=== PATIENT | female | born 1950 | race Caucasian/White ===

== ENCOUNTER 2018-07-14 09:15 | Inpatient (IN) ==
--- NOTE | 2018-07-14 10:25 | Emergency Department Note ---
Disposition Clinical Impression: ARF (acute renal failure) Qualifiers: Acute renal failure type: unspecified Qualified Code(s): N17.9 - Acute kidney failure, unspecified Disposition: Admitted As Inpatient Condition: Fair General Adult HPI - General Chief complaint: ED Recheck/Abnormal Lab/Rx Stated complaint: positive blood cx-called was here yesterday Time Seen by Provider: 07/14/18 10:01 Source: patient, family Limitations: no limitations - History of Present Illness HPI Narrative: Mrs. Hensley is a 67-year-old female past medical history of CKD stage III, hypertension, and NSAID use, borderline diabetes and who presents to the ER request of spring former Dr. Andrade because of flow sudden decline in her GFR from 38 to15, and elevation in creatinine from 1.37-3.11 in a span of 8 days. Patient recently underwent total knee replacement on July 05 and was requested from Ortho to be referred to nephrology because a GFR was noted to be declining while during the hospital stay. Patient denies any recent IV contrast and an C or recent admission are CHF events in the preceding few weeks." She was recently started on spironolactone by her PCP late June but patient's said she stopped taking the spironolactone a day before the surgery because it was making her dizzy. Patient endorses that she stays hydrated denies any dysuria, hematuria, bilateral flank pain, no Hx of congestive heart failure or any liver dysfunction. Of note patient takes 100 mg losartan daily for hypertension. She denies any systemic signs like fever, shortness of breath, chest pain, diarrhea vomiting nausea numbness or tingling in extremities. Pain Scale: 4 - Related Data Home Medications Medication Instructions Recorded Confirmed Amlodipine Besylate 5 mg PO DAILY 07/05/18 07/14/18 Calcium Carbonate/Vitamin D3 1 tab PO DAILY 07/05/18 07/14/18 [Calcium 500 + Vit D Caplet] Carvedilol 12.5 mg PO BID 07/05/18 07/14/18 DiphenhydraMINE [Benadryl] 12.5 mg PO BID PRN 07/05/18 07/14/18 Losartan Potassium 100 mg PO DAILY 07/05/18 07/14/18 Multivitamin [One Daily Essential] 1 tab PO DAILY 07/05/18 07/14/18 hydroCHLOROthiazide 25 mg PO DAILY 07/05/18 07/14/18 [Hydrochlorothiazide] Albuterol Sulfate [Albuterol 2 puff IN DAILY PRN 07/14/18 07/14/18 Inhaler] Aspirin [Adult Aspirin Regimen] 81 mg PO DAILY 07/14/18 07/14/18 Atorvastatin [Lipitor] 40 mg PO DAILY 07/14/18 07/14/18 Docusate [Colace] 100 mg PO DAILY 07/14/18 07/14/18 Oxycodone HCl 5 mg PO Q6-8H PRN 07/14/18 07/14/18 Allergies Allergy/AdvReac Type Severity Reaction Status Date / Time No Known Allergies Allergy Verified 07/14/18 13:55 Constitutional: Denies: fever, chills ENT ED: Denies: ear pain Cardiovascular: Denies: chest pain Respiratory: Denies: cough Gastrointestinal: Denies: abdominal pain Genitourinary: Denies: urgency, dysuria Integumentary: Denies: rash, abrasion Neurological: Denies: headache, weakness Psychiatric: Denies: anxiety Endocrine: Denies: fatigue Hematological/Lymphatic: Denies: easy bruising Past Medical History - Past Medical History Medical history: Reports: asthma, diabetes, hyperlipidemia, hypertension, osteoporosis, renal disease Surgical history: Reports: other Psychiatric history: Reports: no psych history - Social History Smoking Status: Never smoker Smokeless Tobacco Status: No Alcohol use: Reports: none Drug use: Reports: none Physical Exam Gen.: Vitals noted. No acute distress. Alert, awake and oriented * [address], [address], and time, well developed, well-nourished resting comfortably in bed. Pleasant. HEENT: oropharynx clear, Normocephalic, atraumatic, MMM Neck: supple, no JVD, no lymphadenopathy, no carotid bruit. Cardiac: RRR, murmur, +S1/S2, No BLE edema, PMI non-displaced Pulmonary: CTA bilaterally, no wheezes, rales or rhonchi, equal chest expansion, unlabored breathing Abdomen: soft, nontender, BS noted, no guarding, mildly distended. No organomegaly, no pulsatile masses, Back: No Bilateral flank tenderness, no suprapubic pain Skin: warm and dry, no visible lesions. Feels warm, clammy, no rashes, no lesions, no erythema MSK: ROM not assessed. no joint swelling noted, gait not assessed while in bed. Non tender calf or clubbing, no cyanosis/clubbing/ or edema Neuro: A&O, moves all extremities, no focal deficits, sensation intact Psych: Appropriate mood and behavior, normal speech. . Course Vital Signs Temperature 98.3 F 07/14/18 09:23 Pulse Rate 77 07/14/18 09:23 Respiratory Rate 18 07/14/18 09:23 Blood Pressure 163/77 07/14/18 09:23 O2 Sat by Pulse Oximetry 98 07/14/18 09:23 Temperature 97.2 F L 07/14/18 20:58 Pulse Rate 81 07/14/18 20:58 Respiratory Rate 16 07/14/18 20:58 Blood Pressure 129/78 07/14/18 20:58 O2 Sat by Pulse Oximetry 96 07/14/18 20:58 Oxygen Delivery Oxygen Delivery Room Air Medical Decision Making - MDM Narrative Medical decision making narrative: 1156: Patient's BMP this morning showed a creatinine of 2.93 and GFR of 19. 1200: Spoke to the Greenhouse Assistant telephone sterilizer (Dr. Estevez) and I ordered UA, Urine Na, Urine Cr along and CPK 1210: Spoke to the admitting hospitalist Dr. Pastor and patient will be admitted for further evaluation Patient presents to the ED after her visit to [facility] because from SKIP on CKD stage III. She had a decline in her GFR from 30 and 15 a span of 7 days along with progressively increasing creatinine from a 1.37-3.11 suggesting significant SKIP. Patient denies any symptoms of dusurea , hematurea or suprapubic pain , her UA was negative for UTi. Patient does have risk factors that can predisposing her to worsening SKIP like of long-term NSAID use and currently using on losartan 100 mg for hypertension. Patient will be admitted to the hospital for further evaluation of her SKIP on CKD. - Lab Data Result diagrams: 07/14/18 11:57 Lab Results 07/14/18 07/14/18 Range/Units 11:57 11:57 Sodium 136 (136-145) mEq/L Potassium 4.7 (3.5-5.1) mEq/L Chloride 98 (98-107) mEq/L Carbon Dioxide 27 (23-29) mEq/L BUN 36 H (8-23) mg/dL Creatinine 2.87 H (0.60-1.20) mg/dL Est GFR ( Amer) 20 L (> 60) Est GFR (Non-Af Amer) 16 L (> 60) BUN/Creatinine Ratio 13 (6-26) Glucose 139 H (70-105) mg/dL Est Mean Plasma Glucose 123 mg/dl Hemoglobin A1c 5.9 H ( - 5.6) % Calculated Osmolality 293 (280-300) Calcium 9.8 (8.6-10.3) mg/dL Creatine Kinase 112 (30-223) Units/L
--- NOTE | 2018-07-14 11:25 | Emergency Department Note ---
Disposition Clinical Impression: ARF (acute renal failure) Qualifiers: Acute renal failure type: unspecified Qualified Code(s): N17.9 - Acute kidney failure, unspecified Disposition: Admitted As Inpatient Condition: Fair Referrals: Caitlin Marie CNP [Primary Care Provider] - Forms: ED Satisfaction Letter Time of Disposition: 12:50 General Adult HPI - General Chief complaint: ED Recheck/Abnormal Lab/Rx Stated complaint: positive blood cx-called was here yesterday Time Seen by Provider: 07/14/18 10:01 Source: patient, family Limitations: no limitations - History of Present Illness Pain Scale: 4 - Related Data Home Medications Medication Instructions Recorded Confirmed Albuterol Sulfate [Albuterol 2 puff IH Q12H PRN 07/05/18 07/05/18 Inhaler] Alendronate Sodium [Fosamax] 70 mg PO QWEEK 07/05/18 07/05/18 Amlodipine Besylate 5 mg PO DAILY 07/05/18 07/05/18 Atorvastatin [Lipitor] 40 mg PO HS 07/05/18 07/05/18 Calcium Carbonate/Vitamin D3 1 tab PO DAILY 07/05/18 07/05/18 [Calcium 500 + Vit D Caplet] Carvedilol 12.5 mg PO BID 07/05/18 07/05/18 DiphenhydraMINE [Benadryl] 12.5 mg PO BID 07/05/18 07/05/18 Losartan Potassium 100 mg PO DAILY 07/05/18 07/05/18 Multivitamin [One Daily Essential] 1 tab PO DAILY 07/05/18 07/05/18 Spironolactone 25 mg PO DAILY 07/05/18 07/05/18 Von's Wort 150 mg PO DAILY 07/05/18 07/05/18 hydroCHLOROthiazide 25 mg PO DAILY 07/05/18 07/05/18 [Hydrochlorothiazide] Previous Rx's Medication Instructions Recorded Aspirin Enteric Coated [Aspirin EC] 325 mg PO BID #20 tablet. 07/04/18 Docusate [Colace] 100 mg PO BID 10 Days #20 capsule 07/04/18 Allergies Allergy/AdvReac Type Severity Reaction Status Date / Time No Known Allergies Allergy Verified 07/05/18 08:50 Constitutional: Denies: fever, chills ENT ED: Denies: ear pain Cardiovascular: Denies: chest pain Respiratory: Denies: cough Gastrointestinal: Denies: abdominal pain Genitourinary: Denies: urgency, dysuria Integumentary: Denies: rash, abrasion Neurological: Denies: headache, weakness Psychiatric: Denies: anxiety Endocrine: Denies: fatigue Hematological/Lymphatic: Denies: easy bruising Past Medical History - Past Medical History Medical history: Reports: asthma, diabetes, hyperlipidemia, hypertension, osteoporosis, renal disease Surgical history: Reports: other Psychiatric history: Reports: no psych history - Social History Smoking Status: Never smoker Smokeless Tobacco Status: No Alcohol use: Reports: none Drug use: Reports: none Physical Exam - General Limitations: no limitations General appearance: alert, in no apparent distress Course Vital Signs Temperature 98.3 F 07/14/18 09:23 Pulse Rate 77 07/14/18 09:23 Respiratory Rate 18 07/14/18 09:23 Blood Pressure 163/77 07/14/18 09:23 O2 Sat by Pulse Oximetry 98 07/14/18 09:23 Temperature 98.3 F 07/14/18 09:42 Pulse Rate 77 07/14/18 09:42 Respiratory Rate 18 07/14/18 09:42 Blood Pressure 163/77 07/14/18 09:42 O2 Sat by Pulse Oximetry 98 07/14/18 09:42 Oxygen Delivery Oxygen Delivery Room Air Medical Decision Making - Lab Data Result diagrams: 07/14/18 11:57 Lab Results 07/14/18 Range/Units 11:57 Sodium 136 (136-145) mEq/L Potassium 4.7 (3.5-5.1) mEq/L Chloride 98 (98-107) mEq/L Carbon Dioxide 27 (23-29) mEq/L BUN 36 H (8-23) mg/dL Creatinine 2.87 H (0.60-1.20) mg/dL Est GFR ( Amer) 20 L (> 60) Est GFR (Non-Af Amer) 16 L (> 60) BUN/Creatinine Ratio 13 (6-26) Glucose 139 H (70-105) mg/dL Calculated Osmolality 293 (280-300) Calcium 9.8 (8.6-10.3) mg/dL Attestation Statement - Attestation Attestation: I examined this patient and my medical decision-making was reviewed with the CRN A/PA/Advanced Practice Nurse/Resident Physician. I agree with the documented findings, disposition and treatment plan as described except to the extent set forth below. 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 She denies any pain in the head, neck, chest, abdomen or back. No fevers or vomiting. No blood in the urine or stool. Does take medications for blood pressure. Patient will be admitted for further evaluation and management of elevated blood pressure and we do have nephrology and the hospitalist paged [phone]
[2018-07-14] MEDS ORDERED: 0.9 % Sodium Chloride 500 ML IVC ONE (11:57)
--- NOTE | 2018-07-14 12:23 | Internal Med History&Physical ---
Date of Encounter: 07/14/18 Time of Encounter: 12:22 Internal Medicine - H&P: HPI Chief complaint: Abnormal labs Admitted From: Emergency Dept Plans for Post Hospital Care: Home History of present illness: Ms. Hensley is a 67 year old female with past medical history of hypertension, HLD, and who presented to the ER from 's office due to worsening kidney function. The patient recently had a right total knee arthroplasty done on 07/05/2018 here. During that visit she had issues with abnormal kidney funct ion which seemed to have resolved at discharge. She was recommended a follow up with Dr. Andrade. Creatinine on 07/07 was .94. Yesterday she had a follow up at the orthopedic's office and had labs done and creatinine was 3.11. She saw Dr. Andrade today and repeated creatinine was 2.93. BUN 36. She thinks her urinary frequency had decreased. Says she has not been eating as much due to the pain and decreased appetite. She had a normal kidney ultrasound last month. She take HCTZ and losartan. She was put recently on aldactone too but has not taken it since before the knee replacement as it was causing her dizziness. She denies contrast exposure. Not on NSAIDs. Takes tylenol for pain. No hematuria. Denies fever,chills, nausea, vomiting, headache, blurry vision, chest pain, shortness of breath, abdominal pain, constipation, diarrhea, lower extremity edema, rashes, or neurological symptoms. Past Med Surg Social Fam HX - Past Medical History Medical history: asthma, diabetes, hyperlipidemia, hypertension, osteoporosis, renal disease Additional medical history: Heart Murmur. Nonrheumatic Aortic Valve Stenosis Psychiatric history: no psych history - Past Surgical History Surgical History: other Additional surgical history: Right Knee Replacement. TLC-After Childbirth - Social History Smoking Status: Never smoker Smokeless Tobacco Status: No Alcohol use: none Drug use: none Internal Medicine - H&P: Meds Aspirin Enteric Coated [Aspirin EC] 325 mg PO BID #20 tablet. 07/04/18 [Rx] Docusate [Colace] 100 mg PO BID 10 Days #20 capsule 07/04/18 [Rx] Albuterol Sulfate [Albuterol Inhaler] 2 puff IH Q12H PRN 07/05/18 [History] Alendronate Sodium [Fosamax] 70 mg PO QWEEK 07/05/18 [History] Amlodipine Besylate 5 mg PO DAILY 07/05/18 [History] Atorvastatin [Lipitor] 40 mg PO HS 07/05/18 [History] Calcium Carbonate/Vitamin D3 [Calcium 500 + Vit D Caplet] 1 tab PO DAILY 07/05/18 [History] Carvedilol 12.5 mg PO BID 07/05/18 [History] DiphenhydraMINE [Benadryl] 12.5 mg PO BID 07/05/18 [History] Losartan Potassium 100 mg PO DAILY 07/05/18 [History] Multivitamin [One Daily Essential] 1 tab PO DAILY 07/05/18 [History] Spironolactone 25 mg PO DAILY 07/05/18 [History] Von's Wort 150 mg PO DAILY 07/05/18 [History] hydroCHLOROthiazide [Hydrochlorothiazide] 25 mg PO DAILY 07/05/18 [History] Allergy/AdvReac Type Severity Reaction Status Date / Time No Known Allergies Allergy Verified 07/05/18 08:50 All Systems PM: A 10-system review of systems was performed and is negative for pertinent findings except as documented above in the HPI. Review of systems: all systems reviewed are negative except for as mentioned above - Constitutional Vitals: Temp Pulse Resp BP Pulse Ox 98.3 F 77 18 163/77 98 07/14/18 09:42 07/14/18 09:42 07/14/18 09:42 07/14/18 09:42 07/14/18 09:42 Exam: GEN: NAD HEENT: AT, NC, No cyanosis, oral mucosa is moist, No JVD Lymphatics: No lymphadenoapthy Eyes: Extrocular muscles intact, anicteric CVS:RRR. S1, S2, No systolic murmur heard at the second left and right intercostal spaces with no radiation RESP: CTAB ABD: Soft, NT, ND, +BS EXT: No edema, No rashes, 2+ DP NEURO: Nonfocal, CN II-XII intact, No focal motor or sensory deficits Psych: Cooperative, Not anxious or depressed Internal Med - H&P Results - Labs CBC & Chem 7: 07/14/18 11:57 - Assessment and plan (1) ARF (acute renal failure) Current Visit: Yes Status: Acute Assessment and plan: ?? prerenal or ATN. recent kidney US unremarkable. Wont repeat. Will put on IV fluids. c/s nephrology. Send for urine sodium and creatinine. avoid nephrotoxins. labs in am. check A1c Qualifiers: Acute renal failure type: unspecified Qualified Code(s): N17.9 - Acute kidney failure, unspecified (2) Status post total knee replacement, right Current Visit: No Status: Acute Assessment and plan: stable. area look clean and dry (3) HTN (hypertension) Current Visit: No Status: Chronic Assessment and plan: Resume home antihypertensives but hold nephrotoxins. Qualifiers: Hypertension type: essential hypertension Qualified Code(s): I10 - Essential (primary) hypertension (4) HLD (hyperlipidemia) Current Visit: No Status: Chronic Assessment and plan: c/w home meds Qualifiers: Hyperlipidemia type: mixed hyperlipidemia Qualified Code(s): E78.2 - Mixed hyperlipidemia (5) DVT prophylaxis Current Visit: Yes Status: Acute Assessment and plan: heparin SQ. - Time Spent With Patient Total time spent is greater than 50% in coordination of care (as documented) at patient's floor/unit and/or counseling patient:
[2018-07-14 12:26] LABS: Calcium 9.8 mg/dL (8.6-10.3); Potassium 4.7 mEq/L (3.5-5.1)
[2018-07-14] MEDS ORDERED: Ondansetron 4 MG/2 ML VIAL IVP PRN (13:00)
[2018-07-14] MEDS ORDERED: Acetaminophen 325 MG TABLET PO PRN (13:00)
[2018-07-14] MEDS ORDERED: Naloxone 0.4 MG/ML INJ IVP PRN (13:00)
[2018-07-14 15:08] LABS: Estimated Average Glucose 123 mg/dl; Hemoglobin A1C 5.9 %
[2018-07-14] MEDS: *HR* Heparin 5,000 UNIT/ML VIAL SQ SCH ×2 (18:03→21:02)
[2018-07-14] MEDS: 0.9 % Sodium Chloride 1,000 ML IVC SCH (18:04)
[2018-07-14 18:40] LABS: Bilirubin,Urine Negative (Negative); Blood,Urine Negative (Negative); Clarity,Urine Clear (Clear); Color,Urine Yellow (Yellow); Glucose,Urine (UA) Normal (Normal); Ketones,Urine Negative (Negative); Leukocyte Esterase,Urine Trace (Negative); Nitrite,Urine Negative (Negative); Protein,Urine Negative (Neg-Trace); Specific Gravity,Urine 1.014 (1.010-1.025); Urobilinogen,Urine Normal (Normal)
[2018-07-14 18:42] LABS: Bacteria,Urine None Seen per hpf (None-Few); Hyaline Casts,Urine None Seen per lpf (None-Few); RBC,Urine 0-3 per hpf (0-3); Squamous Epithelial Cell,Urine Many per lpf (None-Few)
[2018-07-14 19:17] LABS: Sodium, Urine 54.8 mEq/L
[2018-07-15] MEDS: *HR* OxyCODONE Immed Rel 5 MG TABLET PO PRN ×2 (02:21→12:40)
[2018-07-15] MEDS: 0.9 % Sodium Chloride 1,000 ML IVC SCH ×3 (02:22→18:37)
[2018-07-15] MEDS: *HR* Heparin 5,000 UNIT/ML VIAL SQ SCH ×3 (06:45→20:23)
[2018-07-15 08:35] LABS: Basophils % 0.4 %; Eosinophils # 0.2 K/mcL (0.0-0.6); Eosinophils % 2.8 %; Hematocrit 23.9 % (35.3-44.9); Immature Granulocytes % 0.4 % (0-4); Lymphocytes # 1.6 K/mcL (0.6-4.6); Lymphocytes % 29.1 %; Mean Corpuscular HGB Conc 33.5 g/dL (31.6-35.5); Mean Corpuscular Hemoglobin 29.9 pg (28.0-33.3); Mean Corpuscular Volume 89.2 fL (83.0-100.0); Mean Platelet Volume 10.3 fL (9.4-12.4); Monocytes # 0.8 K/mcL (0.0-1.3); Monocytes % 15.1 %; Neutrophils # 2.8 K/mcL (1.6-8.9); Platelet Count 284 K/mcL (140-400); Red Blood Count 2.68 M/mcL (3.82-4.97); Red Cell Distribution Width 12.1 % (11.5-14.5); Segmented Neutrophils % 52.2 %
[2018-07-15 08:53] LABS: Potassium 4.3 mEq/L (3.5-5.1)
[2018-07-15] MEDS: Cholecalciferol (D-3) 1,000 UNIT TABLET PO SCH (09:50)
[2018-07-15] MEDS: amLODIPine 5 MG TABLET PO SCH (09:50)
[2018-07-15] MEDS: Multivit/Ca/Min/Fe/FA 1 TAB TABLET PO SCH (09:50)
[2018-07-15] MEDS ORDERED: *HR* HYDROcodone/Acet 5/325 mg TABLET PO PRN (11:13)
--- NOTE | 2018-07-15 11:20 | Internal Med Progress Note ---
<SwapnaEloisa - Last Filed: 07/15/18 11:17> Hospitalist Progress Note - Encounter Date of Encounter: 07/15/18 Time of Encounter: 11:18 - Subjective Interval History: Patient states she is doing okay, has pain in her knee. - Exam Vitals: Temp Pulse Resp BP Pulse Ox 98.4 F 73 15 134/64 99 07/15/18 11:16 07/15/18 11:16 07/15/18 11:16 07/15/18 11:16 07/15/18 11:16 Exam: General: alert, NAD HEENT: normocephalic, atraumatic, PEERLA EOMI, neck supple, trachea midline, external ears normal, MMM Cardiac: RRR, 4/6 holosystolic murmur Respiratory: CTAB Abdomen: soft, nontender, BS present Extremities: posterior tibial pulses 2/4 equal, no edema Neuro: A&Ox3 Psych: normal affect - Assessment and Plan (1) SKIP (acute kidney injury) Current Visit: Yes Status: Acute Assessment and Plan: normal renal US 06/16/2018 urine sodium and creatinine WNL IVF @ 125 ml/hr avoid nephrotoxins nephrology consulted, appreciate recommendations renal function is improved from yesterday (2) Status post total knee replacement, right Current Visit: No Status: Acute Assessment and Plan: pain management continue colace while on opiods (3) HLD (hyperlipidemia) Current Visit: No Status: Chronic Assessment and Plan: continue home atorvastatin 40 mg (4) HTN (hypertension) Current Visit: No Status: Chronic Assessment and Plan: hold home losartan and HCTZ due to SKIP continue home carvedilol 12.5 mg BID and norvasc 5 mg daily BP currently stable, continue to monitor - may need additional nephroprotective medications (5) Heart murmur Current Visit: No Status: Chronic Assessment and Plan: chronic echo 05/10/2018 EF 60%, mild concentric LV hypertrophy, mild LV diastolic dysfunction, mild-moderate aortic stenosis DVT Prophylaxis: heparin SQ - Time Spent with Patient Total time spent is greater than 50% in coordination of care (as documented) at patient's floor/unit and/or counseling patient: Internal Medicine: Result - Labs CBC & Chem 7: 07/15/18 08:12 07/15/18 08:12 Labs: Short CBC 07/15/18 Range/Units 08:12 WBC 5.4 (4.3-11.1) K/mcL Hgb 8.0 L (11.5-15.4) g/dL Hct 23.9 L (35.3-44.9) % Plt Count 284 (140-400) K/mcL Neutrophils # 2.8 (1.6-8.9) K/mcL BMP 07/14/18 07/15/18 11:57 08:12 Sodium 136 139 Potassium 4.7 4.3 Chloride 98 106 Carbon Dioxide 27 25 BUN 36 H 28 H Creatinine 2.87 H 2.02 H Glucose 139 H 115 H Calcium 9.8 9.0 Urine 07/14/18 Range/Units 18:18 Urine Color Yellow (Yellow) Urine Clarity Clear (Clear) Urine pH 6.0 (5.0-8.0) pH Units Ur Specific [place] 1.014 (1.010-1.025) Urine Protein Negative (Neg-Trace) mg/dL Urine Glucose (UA) Normal (Normal) mg/dL Consult Discharge Plan - Plan Referrals: Caitlin Marie, ELECTRICAL PROJECT MANAGER [Primary Care Provider] - <Tra Gu - Last Filed: 07/15/18 17:04> Hospitalist Progress Note - Encounter Date of Encounter: 07/15/18 - Exam Vitals: Temp Pulse Resp BP Pulse Ox 98.4 F 75 15 137/63 93 07/15/18 15:53 07/15/18 15:53 07/15/18 15:53 07/15/18 15:53 07/15/18 15:53 - Assessment and Plan (1) ARF (acute renal failure) Current Visit: Yes Status: Suspected (2) Status post total knee replacement, right Current Visit: No Status: Acute (3) HTN (hypertension) Current Visit: No Status: Chronic (4) HLD (hyperlipidemia) Current Visit: No Status: Chronic (5) DVT prophylaxis Current Visit: Yes Status: Acute (6) Aortic stenosis Current Visit: Yes Status: Chronic (7) Acute blood loss anemia Current Visit: No Status: Acute Assessment and Plan: Pt still anemic related to prior surgery. - Time Spent with Patient Total time spent is greater than 50% in coordination of care (as documented) at patient's floor/unit and/or counseling patient: Internal Medicine: Result - Labs CBC & Chem 7: 07/15/18 08:12 07/15/18 08:12 Labs: Short CBC 07/15/18 Range/Units 08:12 WBC 5.4 (4.3-11.1) K/mcL Hgb 8.0 L (11.5-15.4) g/dL Hct 23.9 L (35.3-44.9) % Plt Count 284 (140-400) K/mcL Neutrophils # 2.8 (1.6-8.9) K/mcL BMP 07/15/18 08:12 Sodium 139 Potassium 4.3 Chloride 106 Carbon Dioxide 25 BUN 28 H Creatinine 2.02 H Glucose 115 H Calcium 9.0 Urine 07/14/18 Range/Units 18:18 Urine Color Yellow (Yellow) Urine Clarity Clear (Clear) Urine pH 6.0 (5.0-8.0) pH Units Ur Specific [place] 1.014 (1.010-1.025) Urine Protein Negative (Neg-Trace) mg/dL Urine Glucose (UA) Normal (Normal) mg/dL - Attending Attestation I examined this patient and my medical decision-making was reviewed with the Resident Physician on 07/15/18. I agree with the documented findings, disposition and treatment plan as described except to the extent set forth below. Ms Hensley is currently admitted for acute renal failure following surgical procedure. She remains moderate to high risk due to potential for worsening clinical status. Ms Hensley is resting at this time. She feels OK. Creatinine is somewhat bet ter at this time. She is receiving fluids. Appreciate nephro input. Exam alert Comfortable Mucus membranes dry Heart reg - no murmur and not tachy No wheeze Abd nontender I/P 1. Acute renal failure - most likely ATN. Responding to fluids. 2. Recent R total knee replacement 3. HTN 4. aortic stenosis - mild to moderate Further diagnoses and plan as above. <Eloisa Barcenasty - Last Filed: 07/15/18 11:17> (3) HLD (hyperlipidemia) Qualifiers: Hyperlipidemia type: mixed hyperlipidemia Qualified Code(s): E78.2 - Mixed hyperlipidemia (4) HTN (hypertension) Qualifiers: Hypertension type: essential hypertension Qualified Code(s): I10 - Essential (primary) hypertension <Tra Gu - Last Filed: 07/15/18 17:04> (1) ARF (acute renal failure) Qualifiers: Acute renal failure type: with acute tubular necrosis Qualified Code(s): N17.0 - Acute kidney failure with tubular necrosis (3) HTN (hypertension) Qualifiers: Hypertension type: essential hypertension Qualified Code(s): I10 - Essential (primary) hypertension (4) HLD (hyperlipidemia) Qualifiers: Hyperlipidemia type: mixed hyperlipidemia Qualified Code(s): E78.2 - Mixed hyperlipidemia (6) Aortic stenosis Qualifiers: Cardiac valve disease etiology: etiology unspecified Qualified Code(s): I35.0 - Nonrheumatic aortic (valve) stenosis
--- NOTE | 2018-07-15 11:42 | Nephrology Consult Note ---
Date of Encounter: 07/15/18 Time of Encounter: 12:00 Assessment and Plan (1) SKIP (acute kidney injury) Current Visit: Yes Status: Acute Elevated SCr in the setting of recent surgery with acute blood, decreased po intake and potential nephrotoxic meds Agree with holding HCTZ and lisinopril Renal fxn already improving with fluids suggesting a pre-renal state CPK WNL Urine sodium inconclusive as pt already received fluids in the ED and was on diuretics UOP good so far No acute indication for TECHNICAL SERVICES CONSULTANT at thios time Continue to avoid nephrotoxins if possible Will add urine eosinophils part of the workup US of kidney noted and unremarkable from previous admission (2) Status post total knee replacement, right Current Visit: No Status: Acute Per ortho and primary team (3) Acute blood loss anemia Current Visit: No Status: Acute Hgb down to 8.0 was 12.5 pre-surgery, will monitor Transfusion parameters per primary team History of Present Illness - Reason for Consult Consult date: 07/15/18 Acute Kidney Injury Requesting physician: Phong Burden - History of Present Illness 67 y o female with PMH of DM, HTN and high chol admitted after being seen by Dr Andrade for followup of labs drawn by ortho which showed elevated SCr at 3.11, GFR 15. Pt is s/p right knee athroplasty 07/05/18 complicated with mild elevation in SCr peaking 1.37, GFR 38 but improved to 0.94, GFR 57 on discharge. Pt reports decreased po intake since surgery. No urinary sxs. She was taking HCTZ, lisinopril and aldcatone (stopped recently) at home but no NSAIDs use. Past Med Surg Social Fam HX - Past Medical History Medical history: asthma, diabetes, hyperlipidemia, hypertension, osteoporosis, renal disease Additional medical history: Heart Murmur. Nonrheumatic Aortic Valve Stenosis Psychiatric history: no psych history - Past Surgical History Surgical History: other Additional surgical history: Right Knee Replacement. TLC-After Childbirth - Social History Smoking Status: Never smoker Smokeless Tobacco Status: No Alcohol use: none Drug use: none - Family History Grandfather Living Status: Cause of : [place] Hx Family Cardiac Disorders: Yes Hx Family Respiratory Disorders: No Hx Family Medical Disorders: Yes Medications and Allergies Amlodipine Besylate 5 mg PO DAILY 07/05/18 [History] Calcium Carbonate/Vitamin D3 [Calcium 500 + Vit D Caplet] 1 tab PO DAILY 07/05/18 [History] Carvedilol 12.5 mg PO BID 07/05/18 [History] DiphenhydraMINE [Benadryl] 12.5 mg PO BID PRN 07/05/18 [History] Multivitamin [One Daily Essential] 1 tab PO DAILY 07/05/18 [History] Albuterol Sulfate [Albuterol Inhaler] 2 puff IN DAILY PRN 07/14/18 [History] Aspirin [Adult Aspirin Regimen] 81 mg PO DAILY 07/14/18 [History] Atorvastatin [Lipitor] 40 mg PO DAILY 07/14/18 [History] Docusate [Colace] 100 mg PO DAILY 07/14/18 [History] Oxycodone HCl 5 mg PO Q6-8H PRN 07/14/18 [History] Ferrous Sulfate 325 mg PO TIDWM 30 Days #90 tablet 07/16/18 [Rx] Minoxidil 10 mg PO DAILY 30 Days #30 tablet 07/16/18 [Rx] Allergy/AdvReac Type Severity Reaction Status Date / Time No Known Allergies Allergy Verified 07/14/18 13:55 Review of Systems All Systems review (narrative): The rest of the systems are negative Constitutional: anorexia (admits), chills (denies), fever(s) (denies) Cardiovascular: chest pain (denies) Respiratory: dyspnea (denies) Gastrointestinal: diarrhea (denies), nausea (denies), vomiting (denies) Exam - Vital Signs Vital signs: Initial Vital Signs Temp Pulse Resp BP Pulse Ox 98.3 F 77 18 163/77 98 07/14/18 09:23 07/14/18 09:23 07/14/18 09:23 07/14/18 09:23 07/14/18 09:23 Vital Signs - Last 8 Hours Temp Pulse Resp BP Pulse Ox 07/15/18 11:16 98.4 F 73 15 134/64 99 07/15/18 06:38 98.6 F 74 15 129/55 93 07/15/18 04:00 98.6 F 79 18 150/64 92 Intake and Output 07/14/18 07/15/18 07/15/18 23:59 07:59 15:59 Intake Total 0 / 0 1100 / 1100 1540 / 1540 Output Total 200 / 200 600 / 600 200 / 200 Balance -200 / -200 500 / 500 1340 / 1340 Intake: IV Fluids 1000 / 1000 1000 / 1000 0.9 % Sodium Chloride 1,000 ML 1000 / 1000 1000 / 1000 @ 125 mls/hr IVC .Q8H FELICITAS Rx#: [id number] Oral 0 / 0 100 / 100 540 / 540 Output: Urine 200 / 200 600 / 600 200 / 200 Other: Meal Breakfast Percent of Meal Consumed 90% # Voids 0 0 Weight 74.7 kg Patient Weight 07/15/18 23:59 Weight 74.7 kg - General Appearance General appearance: well-developed, well-nourished EENT: ATNC, mucous membranes moist Neck: no JVD, supple Respiratory: clear Cardiology: no edema, normal S1, normal S2 Gastrointestinal: no tenderness, no guarding Integumentary: warm and dry Neurologic: no focal deficit Musculoskeletal: no deformities Psychiatric: mood/affect appropriate Results - Lab Results 07/16/18 07:08 07/16/18 07:08 Most recent lab results Calcium 9.0 mg/dL (8.6-10.3) 07/15/18 08:12 Urine Creatinine 66 mg/dL 07/14/18 18:18 Urine Sodium 54.8 mEq/L 07/14/18 18:18 Consult Discharge Plan - Plan Referrals: Caitlin Marie CNP [Primary Care Provider] - Prescriptions: Ferrous Sulfate 325 mg PO TIDWM 30 Days #90 tablet Minoxidil 10 mg PO DAILY 30 Days #30 tablet
[2018-07-16] MEDS: 0.9 % Sodium Chloride 1,000 ML IVC SCH ×2 (03:21→11:50)
[2018-07-16] MEDS: *HR* OxyCODONE Immed Rel 5 MG TABLET PO PRN ×2 (03:26→15:47)
[2018-07-16] MEDS: *HR* Heparin 5,000 UNIT/ML VIAL SQ SCH ×2 (05:15→15:45)
[2018-07-16 07:28] LABS: Basophils % 0.2 %; Eosinophils # 0.2 K/mcL (0.0-0.6); Eosinophils % 3.1 %; Hematocrit 22.9 % (35.3-44.9); Hemoglobin 7.6 g/dL (11.5-15.4); Immature Granulocytes % 0.2 % (0-4); Lymphocytes # 1.6 K/mcL (0.6-4.6); Lymphocytes % 32.2 %; Mean Corpuscular HGB Conc 33.2 g/dL (31.6-35.5); Mean Corpuscular Hemoglobin 30.2 pg (28.0-33.3); Mean Corpuscular Volume 90.9 fL (83.0-100.0); Mean Platelet Volume 10.1 fL (9.4-12.4); Monocytes # 0.8 K/mcL (0.0-1.3); Monocytes % 15.3 %; Neutrophils # 2.5 K/mcL (1.6-8.9); Platelet Count 265 K/mcL (140-400); Red Blood Count 2.52 M/mcL (3.82-4.97); Red Cell Distribution Width 11.9 % (11.5-14.5)
[2018-07-16 07:51] LABS: Potassium 4.1 mEq/L (3.5-5.1)
[2018-07-16] MEDS ORDERED: Aspirin Enteric Coated 81 MG Tablet PO SCH (09:00)
[2018-07-16] MEDS: Multivit/Ca/Min/Fe/FA 1 TAB TABLET PO SCH (10:33)
[2018-07-16] MEDS: amLODIPine 5 MG TABLET PO SCH (10:33)
[2018-07-16] MEDS: Cholecalciferol (D-3) 1,000 UNIT TABLET PO SCH (10:33)
[2018-07-16 15:39] VITALS: BP 165/71
--- NOTE | 2018-07-16 15:51 | Discharge Summary ---
<Eloisa Barcenas - Last Filed: 07/16/18 15:48> - NOTES TO OUTPATIENT PROVIDER Notes to Outpatient Provider: Would recheck BMP at hospital f/u visit. Minoxidil started on discharge (as home losartan and HCTZ held); may resume losartan and HCTZ pending normal renal function. Iron added for acute blood loss anemia. Orders not resulted at time of discharge: Pending orders 07/17/18 04:00 BMP [Basic Metabolic Panel] AM 0400 CBC [Complete Blood Count] [HEME] AM 0400 07/18/18 04:00 BMP [Basic Metabolic Panel] AM 0400 CBC [Complete Blood Count] [HEME] AM 0400 07/19/18 04:00 BMP [Basic Metabolic Panel] AM 0400 CBC [Complete Blood Count] [HEME] AM 0400 07/20/18 04:00 BMP [Basic Metabolic Panel] AM 0400 CBC [Complete Blood Count] [HEME] AM 0400 07/21/18 04:00 BMP [Basic Metabolic Panel] AM 0400 CBC [Complete Blood Count] [HEME] AM 0400 Date of Encounter: 07/16/18 Time of Encounter: 15:48 - Discharge Diagnosis (1) SKIP (acute kidney injury) Priority: Primary Status: Acute (2) Status post total knee replacement, right Priority: Secondary Status: Acute (3) HLD (hyperlipidemia) Priority: Secondary Status: Chronic Qualifiers: Hyperlipidemia type: mixed hyperlipidemia Qualified Code(s): E78.2 - Mixed hyperlipidemia (4) HTN (hypertension) Priority: Secondary Status: Chronic Qualifiers: Hypertension type: essential hypertension Qualified Code(s): I10 - Essential (primary) hypertension (5) Heart murmur Priority: Secondary Status: Chronic Hospital course: Ms. Hensley is a 67 year old female admitted for SKIP following right knee arthoplasty. She was treated with IVF and her home losartan and HCTZ were held. She was noted to have acute blood loss anemia (from her knee replacement) with dilutional anemia from IVF. Iron supplementation was started. Her kidney function improved while inpatient. She is being discharged with minoxidil (instead of losartan and HCTZ) for her BP with home carvedilol and norvasc continued. Discharge discussed with: patient - Time Spent with Patient Total time spent providing and/or coordinating discharge services: - Discharge Medications Prescriptions: Ferrous Sulfate 325 mg PO TIDWM 30 Days #90 tablet Minoxidil 10 mg PO DAILY 30 Days #30 tablet Home Medications: Amlodipine Besylate 5 mg PO DAILY 07/05/18 [History] Calcium Carbonate/Vitamin D3 [Calcium 500 + Vit D Caplet] 1 tab PO DAILY 07/05/18 [History] Carvedilol 12.5 mg PO BID 07/05/18 [History] DiphenhydraMINE [Benadryl] 12.5 mg PO BID PRN 07/05/18 [History] Multivitamin [One Daily Essential] 1 tab PO DAILY 07/05/18 [History] Albuterol Sulfate [Albuterol Inhaler] 2 puff IN DAILY PRN 07/14/18 [History] Aspirin [Adult Aspirin Regimen] 81 mg PO DAILY 07/14/18 [History] Atorvastatin [Lipitor] 40 mg PO DAILY 07/14/18 [History] Docusate [Colace] 100 mg PO DAILY 07/14/18 [History] Oxycodone HCl 5 mg PO Q6-8H PRN 07/14/18 [History] Ferrous Sulfate 325 mg PO TIDWM 30 Days #90 tablet 07/16/18 [Rx] Minoxidil 10 mg PO DAILY 30 Days #30 tablet 07/16/18 [Rx] Allergies/Adverse Reactions: Allergy/AdvReac Type Severity Reaction Status Date / Time No Known Allergies Allergy Verified 07/14/18 13:55 Date of admission: 07/14/18 13:13 Primary care physician: Caitlin Marie CNP Consults: 07/14/18 12:09 Consult to Nephrology [CONS] Stat Consulting Provider: Kidney Karen/CATA/MARIANA/RIGOBERTO Reason for Consult: SKIP on CKD Call Completed: Yes Discharging clinician: Eloisa Barcenas Anticipated date of discharge: 07/16/18 - Constitutional Vitals: Temp Pulse Resp BP Pulse Ox 98.1 F 76 15 165/71 98 07/16/18 15:38 07/16/18 15:38 07/16/18 15:38 07/16/18 15:38 07/16/18 15:38 Exam: General: alert, NAD HEENT: normocephalic, atraumatic, PEERLA EOMI, neck supple, trachea midline, external ears normal, MMM Cardiac: RRR, 4/6 holosystolic murmur Respiratory: CTAB Abdomen: soft, nontender, BS present Extremities: posterior tibial pulses 2/4 equal, no edema Skin: right knee with surgery dressing, no evidence of infection Neuro: A&Ox3 Psych: normal affect - Patient Status Disposition: Home, Self-Care Condition: Good Functional capacity at discharge: independent ambulation Overall status at discharge: patient is progressing back to baseline - Discharge Instructions Instructions: Minoxidil (By mouth), Acute Kidney Injury (DC) Follow Up With: Caitlin Marie BUSINESS ASST [Primary Care Provider] - (Keep appt that you already have. Call tomorrow to clarify when they scheduled you for.) Additional Instructions: Make sure to drink plenty of fluids so you dont get dehydrated again. We electronically sent your prescriptions to [facility] pharmacy that you usually go to. - Diet and Activity Diet: low fat, low cholesterol <Tra Gu - Last Filed: 07/16/18 17:37> Orders not resulted at time of discharge: Pending orders 07/17/18 04:00 BMP [Basic Metabolic Panel] AM 0400 CBC [Complete Blood Count] [HEME] AM 0400 07/18/18 04:00 BMP [Basic Metabolic Panel] AM 0400 CBC [Complete Blood Count] [HEME] AM 0400 07/19/18 04:00 BMP [Basic Metabolic Panel] AM 0400 CBC [Complete Blood Count] [HEME] AM 0400 07/20/18 04:00 BMP [Basic Metabolic Panel] AM 0400 CBC [Complete Blood Count] [HEME] AM 0400 07/21/18 04:00 BMP [Basic Metabolic Panel] AM 0400 CBC [Complete Blood Count] [HEME] AM 0400 Date of Encounter: 07/16/18 - Discharge Diagnosis (1) ARF (acute renal failure) Priority: Primary Status: Suspected Qualifiers: Acute renal failure type: with acute tubular necrosis Qualified Code(s): N17.0 - Acute kidney failure with tubular necrosis (2) Status post total knee replacement, right Status: Acute (3) HTN (hypertension) Status: Chronic Qualifiers: Hypertension type: essential hypertension Qualified Code(s): I10 - Essential (primary) hypertension (4) HLD (hyperlipidemia) Status: Chronic Qualifiers: Hyperlipidemia type: mixed hyperlipidemia Qualified Code(s): E78.2 - Mixed hyperlipidemia (5) Aortic stenosis Priority: Secondary Status: Chronic Qualifiers: Cardiac valve disease etiology: etiology unspecified Qualified Code(s): I35.0 - Nonrheumatic aortic (valve) stenosis (6) Acute blood loss anemia Priority: Secondary Status: Acute Hospital course: Ms. Hensley is a 67 year old female - Time Spent with Patient Total time spent providing and/or coordinating discharge services: Date of admission: 07/14/18 13:13 Primary care physician: Caitlin Marie CNP Consults: 07/14/18 12:09 Consult to Nephrology [CONS] Stat Consulting Provider: Kidney Karen/CATA/MARIANA/RIGOBERTO Reason for Consult: SKIP on CKD Call Completed: Yes - Constitutional Vitals: Temp Pulse Resp BP Pulse Ox 98.1 F 76 15 165/71 98 07/16/18 15:38 07/16/18 15:38 07/16/18 15:38 07/16/18 15:38 07/16/18 15:38 - Attending Attestation I examined this patient and my medical decision-making was reviewed with the Resident Physician on 07/15/18. I agree with the documented findings, disposition and treatment plan as described except to the extent set forth below. Ms Hensley has been admitted for acute renal failure thought to be due to ATN picture following surgery. She has slowly improved with hydration. Her hemoglobin is lower today but she has received a lot of fluid. To be on iron. She is currently afebrile and ready for discharge home. Exam alert Comfortable Mucus membranes dry Heart not tachy No wheeze ambulating Plan D/C home today
== END 2018-07-16 17:38 | disposition home or self-care (01) | DRG 683 ==
LOC: 2NENU 09:15 → EMEROOARM 09:15 → OBSVTOIN 13:13 → SUATTDRO 13:14 → 2NENU 15:24
PROVIDERS: ADMIT Internal Medicine; ATTEND Internal Medicine

== ENCOUNTER 2022-02-08 23:29 | Inpatient (IN) ==
[2022-02-09 03:51] LABS: Bacteria,Urine Few per hpf (None-Few); Bilirubin,Urine Negative (Negative); Blood,Urine Trace (Negative); Clarity,Urine Clear (Clear); Color,Urine Light-Yellow (Yellow); Glucose,Urine (UA) Normal (Normal); Ketones,Urine Negative (Negative); Leukocyte Esterase,Urine Moderate (Negative); Mucus,Urine Few per lpf (None-Few); Nitrite,Urine Negative (Negative); Protein,Urine 30 mg/dL (Neg-Trace); RBC,Urine 0-3 per hpf (0-3); Specific Gravity,Urine 1.016 (1.010-1.025); Squamous Epithelial Cell,Urine Moderate per hpf (None-Few); Urobilinogen,Urine Normal (Normal)
[2022-02-09 03:58] LABS: Basophils % 0.2 %; Eosinophils % 0.3 %; Hematocrit 40.9 % (35.3-44.9); Hemoglobin 13.8 g/dL (11.5-15.4); Immature Granulocytes % 0.4 % (0-4); Immature Platelets 11.6 % (1.1-6.1); Lymphocytes # 0.8 K/mcL (0.6-4.6); Lymphocytes % 9.1 %; Mean Corpuscular HGB Conc 33.7 g/dL (31.6-35.5); Mean Corpuscular Hemoglobin 28.5 pg (28.0-33.3); Mean Corpuscular Volume 84.5 fL (83.0-100.0); Mean Platelet Volume 11.7 fL (9.4-12.4); Monocytes # 1.2 K/mcL (0.0-1.3); Monocytes % 12.9 %; Platelet Count 184 K/mcL (140-400); Red Blood Count 4.84 M/mcL (3.82-4.97); Red Cell Distribution Width 12.8 % (11.5-14.5); Segmented Neutrophils % 77.1 %; White Blood Count 9.1 K/mcL (4.3-11.1)
[2022-02-09 04:28] LABS: Influenza A PCR Negative (Negative); Influenza B PCR Negative (Negative); Resp. Syncytial Virus PCR Negative (Negative)
[2022-02-09 04:31] LABS: Albumin 4.4 g/dL (3.5-5.7); Alkaline Phosphatase 83 Units/L (34-104); BUN/Creatinine Ratio 10 (6-26); Blood Urea Nitrogen 10 mg/dL (8-23); Calcium 9.7 mg/dL (8.6-10.3); Carbon Dioxide 24 mEq/L (23-29); Chloride 103 mEq/L (98-107); Glucose 110 mg/dL (70-105); Osmolality,Calculated 284 (280-300); Potassium 4.3 mEq/L (3.5-5.1); Sodium 137 mEq/L (136-145); Troponin I 0.18 ng/mL (< 0.04); eGFR For African Americans > 60 (> 60); eGFR For Non-African Americans 55 (> 60)
[2022-02-09 04:38] LABS: Alanine Aminotransferase 16 Units/L (7-52); Albumin/Globulin Ratio 1.3 (1.1-2.2); Aspartate Amino Transferase 37 Units/L (13-39); Bilirubin,Total 0.5 mg/dL (0.3-1.0); Globulin 3.3 g/dL (2.4-3.5); Total Protein 7.7 g/dL (6.4-8.9)
[2022-02-09 04:43] LABS: SARS-CoV-2 by PCR (In House) Positive (Negative)
[2022-02-09] MEDS ORDERED: 0.9 % Sodium Chloride 1,000 ML IV ONE (06:47)
[2022-02-09] MEDS ORDERED: cefTRIAXone 1,000 MG in Water for inj. (sterile) 10 ML IVP ONE (06:47)
[2022-02-09] MEDS ORDERED: Iopamidol - 370 500 ML MLS IVP ONE (07:02)
[2022-02-09] MEDS ORDERED: *HR* HYDROcodone/Acet 5/325 mg TABLET PO PRN (07:19)
[2022-02-09] MEDS ORDERED: Ondansetron 4 MG/2 ML VIAL IVP PRN (07:19)
[2022-02-09] MEDS ORDERED: Acetaminophen 325 MG TABLET PO PRN (07:19)
[2022-02-09] MEDS ORDERED: Naloxone 0.4 MG/ML INJ IVP PRN (07:19)
[2022-02-09] MEDS ORDERED: 0.9 % Sodium Chloride 1,000 ML IVC SCH (08:15)
[2022-02-09] MEDS ORDERED: SULFUR HEXAFLUORIDE MICROSPHR 25 MG VIAL IVP PRN (11:09)
[2022-02-09] MEDS ORDERED: *HR* Heparin 5,000 UNIT/ML VIAL IVP ONE (11:12)
[2022-02-09] MEDS ORDERED: *HR* Heparin 5,000 UNIT/ML VIAL IVP PRN ×2 (11:12)
[2022-02-09 12:12] LABS: Hemoglobin 12.6 g/dL (11.5-15.4); Mean Corpuscular HGB Conc 33.2 g/dL (31.6-35.5); Mean Corpuscular Hemoglobin 28.2 pg (28.0-33.3); Mean Platelet Volume 11.3 fL (9.4-12.4); Platelet Count 197 K/mcL (140-400); Red Blood Count 4.47 M/mcL (3.82-4.97); White Blood Count 6.8 K/mcL (4.3-11.1)
[2022-02-09 12:29] LABS: Heparin anti-factor XA UFH < 0.04 IU/mL (0.30-0.70); INR 1.1; Prothrombin Time 12.2 Seconds (9.4-12.1)
[2022-02-09 13:08] LABS: Carcinoembryonic Antigen 2.5 ng/mL (Less than 5.0)
[2022-02-09] MEDS: carvediloL 6.25 MG TABLET PO SCH ×2 (13:15→14:21)
[2022-02-09] MEDS: Heparin 25,000UNIT/250ML 1/2NS 25,000 UNIT/250 ML IV.SOLN IVC SCH (14:20)
[2022-02-09] MEDS: Aspirin Enteric Coated 81 MG Tablet PO SCH (14:21)
[2022-02-10 05:40] LABS: BUN/Creatinine Ratio 10 (6-26); Blood Urea Nitrogen 10 mg/dL (8-23); Calcium 8.5 mg/dL (8.6-10.3); Carbon Dioxide 25 mEq/L (23-29); Chloride 103 mEq/L (98-107); Glucose 103 mg/dL (70-105); Magnesium 1.7 mg/dL (1.6-2.6); Osmolality,Calculated 283 (280-300); Phosphorous 3.7 mg/dL (2.7-4.5); Potassium 3.2 mEq/L (3.5-5.1); Sodium 137 mEq/L (136-145); eGFR For African Americans > 60 (> 60); eGFR For Non-African Americans 57 (> 60)
[2022-02-10] MEDS ORDERED: *HR* Enoxaparin 40 MG/0.4 ML SYRINGE SQ SCH (06:00)
[2022-02-10] MEDS: cefTRIAXone 1,000 MG in 0.9 % Sodium Chloride 10 ML IVP SCH (08:11)
[2022-02-10] MEDS: Aspirin Enteric Coated 81 MG Tablet PO SCH (08:12)
[2022-02-10] MEDS: carvediloL 6.25 MG TABLET PO SCH ×2 (08:12→15:33)
[2022-02-10] MEDS: Heparin 25,000UNIT/250ML 1/2NS 25,000 UNIT/250 ML IV.SOLN IVC SCH (12:05)
[2022-02-10] MEDS: predniSONE 20 MG TABLET PO SCH (15:33)
[2022-02-11 04:54] LABS: Hematocrit 36.9 % (35.3-44.9); Immature Granulocytes % 0.3 % (0-4); Lymphocytes # 0.9 K/mcL (0.6-4.6); Lymphocytes % 28.3 %; Mean Corpuscular HGB Conc 32.5 g/dL (31.6-35.5); Mean Corpuscular Hemoglobin 27.8 pg (28.0-33.3); Mean Corpuscular Volume 85.6 fL (83.0-100.0); Mean Platelet Volume 11.9 fL (9.4-12.4); Monocytes # 0.2 K/mcL (0.0-1.3); Monocytes % 5.4 %; Neutrophils # 2.1 K/mcL (1.6-8.9); Platelet Count 213 K/mcL (140-400); Red Blood Count 4.31 M/mcL (3.82-4.97); Red Cell Distribution Width 13.2 % (11.5-14.5)
[2022-02-11 05:01] LABS: White Blood Count 3.2 K/mcL (4.3-11.1)
[2022-02-11 05:29] LABS: BUN/Creatinine Ratio 11 (6-26); Blood Urea Nitrogen 10 mg/dL (8-23); Calcium 8.5 mg/dL (8.6-10.3); Carbon Dioxide 24 mEq/L (23-29); Chloride 108 mEq/L (98-107); Glucose 151 mg/dL (70-105); Osmolality,Calculated 290 (280-300); Potassium 4.3 mEq/L (3.5-5.1); Sodium 139 mEq/L (136-145); eGFR For African Americans > 60 (> 60); eGFR For Non-African Americans > 60 (> 60)
[2022-02-11] MEDS: carvediloL 6.25 MG TABLET PO SCH (07:45)
[2022-02-11] MEDS: cefTRIAXone 1,000 MG in 0.9 % Sodium Chloride 10 ML IVP SCH (07:45)
[2022-02-11] MEDS: Aspirin Enteric Coated 81 MG Tablet PO SCH (07:45)
[2022-02-11] MEDS: predniSONE 20 MG TABLET PO SCH (07:45)
[2022-02-11 12:02] VITALS: BP 168/79; PULSE 78; TEMP 97.9; O2SAT 91
== END 2022-02-11 13:42 | disposition home or self-care (01) | DRG 177 ==
LOC: EMEROOARM 23:29 → 3BNU 23:29 → SUATTDRO 02-09 11:39 → 3BNU 02-09 12:19
PROVIDERS: ADMIT Internal Medicine; ATTEND Registered Nurse